=== PATIENT | male | born 1995 | race Hispanic/Latino ===

== ENCOUNTER 2025-05-26 10:39 | Emergency (ER) | payer BC, SELFPAY ==
[2025-05-26 10:44] VITALS: BP 120/74
--- NOTE | 2025-05-26 11:01 | EDRN ---
Kenyon HUBBARD in room w/ pt.
--- NOTE | 2025-05-26 11:05 | ED.GENMED ---
History of Present Illness
General
Chief Complaint: Allergic Reaction
Time Seen by Provider: 05/26/25 10:48
History of Present Illness
History of Present Illness:
Plan female presents to the emergency department for patient widespread hives that began yesterday. No trigger. Denies recent contact with irritant plant, soaps, or detergents that are new. Has had this happen in the past without known trigger.
He denies any sensation of throat closing or shortness of breath but does feel somewhat itchy in the throat. Has not taken any medications today
Review of Systems
Review of Systems
Allergies reviewed?: Yes
All Other Systems: ROS reviewed and negative except as documented in HPI and ROS
Phy Exam
Physical Exam
Physical Exam:
GEN: Well appearing, NAD, WDWN
HEENT: Oral mucosa moist, no scleral icterus
Cardiac: Regular rate
Lung: No respiratory distress, no tachypnea
MSK: No gross deformity or injuries
Skin: Good color, no pallor or jaundice. Widespread raised urticarial lesions to all 4 extremities and torso anteriorly and posteriorly, scant involvement to the forehead bilaterally. No involvement of the palms or soles, no intraoral lesions
Neuro: AO x3, moves all extremities freely
Psych: Calm, cooperative
Course
Orders/Labs/Results
Orders:
Orders
05/26/25 11:05
Prednisone [Deltasone] 50 mg PO NOW STA
Vital Signs
Initial and Last Documented VS:
Initial Vital Signs
Temp Pulse Resp BP Pulse Ox
98.1 F 71 16 120/74 98
05/26/25 10:44 05/26/25 10:44 05/26/25 10:44 05/26/25 10:44 05/26/25 10:44
Last Documented Vital Signs
Temp Pulse Resp BP Pulse Ox
98.1 F 81 16 107/75 95
05/26/25 10:44 05/26/25 11:16 05/26/25 11:16 05/26/25 11:16 05/26/25 11:16
MDM/Problems Addressed
MDM/Problems Addressed:
Due to widespread involvement will start steroids, discussed use of antihistamines and encouraged outpatient follow-up with charge master specialist
*Pulse Oximetry
SaO2: 98
Oxygen Mode of Delivery: Room air
Patient hypoxic: no
*Critical Care Note
Total Time (30-74mins, 75-104mins- exclusive of procedures): Not Applicable
ED Attending Note
-
Portions of this chart may have been created with voice recognition software.� Occasional wrong word or��sound alike� substitutions may have occurred due to the inherent limitations of voice recognition software.
Discharge Plan
Departure
Patient Disposition: Home (Routine Discharge)
Date of Disposition: 05/26/25
Time of Disposition: 11:07
Patient with high blood pressure during this ER visit?: No
Discharge Problem:
Urticaria
Instructions: Hives (DC)
Prescriptions:
New
methylprednisolone [Medrol (Oscar)] 4 mg tablets,dose pack
See Rx Instructions .ROUTE .COMPLEX Qty: 21 0RF
Rx Instructions:
orally per package directions
Referrals:
Blayne Castro MD [[facility] [place]] - Call in 1-3 days for appt
Interventions
Interventions:
*Risk Screen - Suicide Last Done: 05/26/25 10:44
*General Assessment Last Done: 05/26/25 11:13
*Neglect/Abuse Screening Last Done: 05/26/25 10:44
*ED- Fall Risk Assessment Last Done: 05/26/25 11:13
*ED COVID-19 Vaccine History Last Done: 05/26/25 11:13
*Nursing Disposition Last Done: 05/26/25 11:25
ED- Cardiac Assessment Last Done: 05/26/25 11:19
ED- Pulmonary Assessment Last Done: 05/26/25 11:19
ED-Skin Assessment Last Done: 05/26/25 11:19
Discharge Date and Time
Discharge Date/Time: 05/26/25 11:25
Print Language: SWEDISH
[2025-05-26 11:13] VITALS: BMI 26.3
[2025-05-26] MEDS: DELTASONE 50 MG PO (11:14)
[2025-05-26 11:16] VITALS: BP 107/75
== END 2025-05-26 11:25 | disposition home or self-care (01) ==
LOC: EMR 10:39
PROVIDERS: EMERGENCY PHYSICIAN Emergency Medicine
DX: L50.9 Urticaria, unspecified (principal)
CPT/HCPCS: 99283